=== PATIENT | male | born 1995 | race Caucasian/White ===

== ENCOUNTER 2017-03-03 00:30 | Emergency (ER) | payer OTHER ==
[2017-03-03] MEDS ORDERED: SODIUM CHLORIDE 0.9% 1,000 ML IV STA ×3 (00:53→02:01)
[2017-03-03] MEDS ORDERED: MORPHINE SULFATE 5 MG/ML SYRINGE IV STA (00:53)
[2017-03-03] MEDS ORDERED: ONDANSETRON 4 MG/2 ML VIAL IVP STA (00:53)
[2017-03-03] MEDS ORDERED: SODIUM CHLORIDE 0.9% 500 ML IV STA (00:53)
[2017-03-03] MEDS ORDERED: IPRATROPIUM-ALBUTEROL 3 ML NEB INHALATION STA (00:54)
[2017-03-03] MEDS ORDERED: ACETAMINOPHEN TAB 325 MG TAB PO STA (00:54)
[2017-03-03] MEDS ORDERED: DEXAMETHASONE SOD PHOSPHATE 10 MG/ML 1 ML VIAL IV STA (00:54)
[2017-03-03] MEDS ORDERED: KETOROLAC 30 MG/ML 1 ML VIAL IVP STA (00:54)
--- NOTE | 2017-03-03 00:59 | ED ---
General Adult HPI - General Chief complaint: Shortness of Breath Stated complaint: Vomiting/Fever Time Seen by Provider: 03/03/17 00:41 Source: patient, RN notes reviewed, old records reviewed Mode of arrival: ambulatory Limitations: no limitations - History of Present Illness Initial comments: This is a 21-year-old male to the ER for those regards to fever, fever cough. Patient states is been not feeling well for about a month. Patient has history of asthma. Otherwise takes no medications. Patient did take Tylenol earlier in the day with no significant improvement. Patient's headache cough fever and decreased appetite for yesterday into today. Patient was receiving [employer] visiting his girlfriend who he states also had some similar illness. Patient denies sore throat. No bowel pain. Loose stools but no significant diarrhea. - Related Data Home Medications Medication Instructions Recorded Confirmed OXcarbazepine [Trileptal] 300 mg PO BID 01/18/16 02/10/16 QUEtiapine [SEROquel] 200 mg PO HS 01/18/16 02/10/16 Previous Rx's Medication Instructions Recorded Albuterol Inhaler [Ventolin Hfa 1 - 2 puff INHALATION Q6HR PRN #1 02/10/16 Inhaler] inhaler Clarithromycin [Biaxin] 500 mg PO Q12HR 10 Days tablet 02/10/16 predniSONE 20 mg PO DAILY #5 tab 02/10/16 Naproxen [Naprosyn] 500 mg PO Q12HR PRN #30 tab 03/03/17 Oseltamivir [Tamiflu] 75 mg PO Q12HR #10 cap 03/03/17 Allergies Allergy/AdvReac Type Severity Reaction Status Date / Time atomoxetine HCl Allergy Unknown Verified 03/03/17 00:36 [From Strattera] blueberry Allergy Unknown Verified 03/03/17 00:36 divalproex sodium Allergy Unknown Verified 03/03/17 00:36 [From Depakote] Fish Containing Products Allergy Unknown Verified 03/03/17 00:36 [Fish] methylphenidate HCl Allergy Unknown Verified 03/03/17 00:36 [From Concerta] peas Allergy Unknown Verified 03/03/17 00:36 Review of Systems ROS Statement: Those systems with pertinent positive or pertinent negative responses have been documented in the HPI. ROS Other: All systems not noted in ROS Statement are negative. Past Medical History Past Medical History: Asthma Additional Past Medical History / Comment(s): tourettes History of Any Multi-Drug Resistant Organisms: MRSA Date of last positivie culture/infection: 2015 MDRO Source:: chest Past Surgical History: No Surgical Hx Reported Past Psychological History: ADD/ADHD, Anxiety, Bipolar, Depression Smoking Status: Current every day smoker Past Alcohol Use History: Occasional Past Drug Use History: Marijuana General Exam Limitations: no limitations General appearance: alert, in no apparent distress Head exam: Present: atraumatic, normocephalic, normal inspection Eye exam: Present: normal appearance, PERRL, EOMI. Absent: scleral icterus, conjunctival injection, periorbital swelling ENT exam: Present: normal exam, mucous membranes moist Neck exam: Present: normal inspection. Absent: tenderness, meningismus, lymphadenopathy Respiratory exam: Present: normal lung sounds bilaterally. Absent: respiratory distress, wheezes, rales, rhonchi, stridor Cardiovascular Exam: Present: normal rhythm, tachycardia, normal heart sounds. Absent: systolic murmur, diastolic murmur, rubs, gallop, clicks GI/Abdominal exam: Present: soft, normal bowel sounds. Absent: distended, tenderness, guarding, rebound, rigid Extremities exam: Present: normal inspection, full ROM, normal capillary refill. Absent: tenderness, pedal edema, joint swelling, calf tenderness Back exam: Present: normal inspection Neurological exam: Present: alert, oriented X3, CN II-XII intact Psychiatric exam: Present: normal affect, normal mood Skin exam: Present: warm, dry, intact, normal color. Absent: rash Course Vital Signs 03/03/17 03/03/17 03/03/17 00:31 01:09 01:27 Temperature 103.6 F H Pulse Rate 105 H 106 H 104 H Respiratory 28 H 18 Rate Blood Pressure 128/78 138/76 O2 Sat by Pulse 98 98 Oximetry 03/03/17 01:44 Temperature 101.5 F H Pulse Rate 108 H Respiratory 20 Rate Blood Pressure 141/77 O2 Sat by Pulse 98 Oximetry - Reevaluation(s) Reevaluation #1: 03/03/17 01:53 Patient feels much improved symptomatically therapy Medical Decision Making - Medical Decision Making 21 ER for evaluation of fever, congestion, positive for this, actually negative at this point feeling better will discharge on Tamiflu, encouraged fever control. Patient's in no distress - Lab Data Result diagrams: 03/03/17 00:45 03/03/17 00:45 Lab Results 03/03/17 03/03/17 03/03/17 Range/Units 00:45 00:45 00:45 WBC 8.5 (4.0-11.0) k/uL RBC 5.05 (4.30-5.90) m/uL Hgb 14.8 (13.0-17.5) gm/dL Hct 45.7 (39.0-53.0) % MCV 90.5 (80.0-100.0) fL MCH 29.2 (25.0-35.0) pg MCHC 32.3 (31.0-37.0) g/dL RDW 15.3 (11.5-15.5) % Plt Count 169 (150-450) k/uL Neutrophils % 78 % Lymphocytes % 7 % Monocytes % 10 % Eosinophils % 1 % Basophils % 3 % Neutrophils # 6.6 (1.3-7.7) k/uL Lymphocytes # 0.6 L (1.0-4.8) k/uL Monocytes # 0.8 (0-1.0) k/uL Eosinophils # 0.1 (0-0.7) k/uL Basophils # 0.2 (0-0.2) k/uL PT (9.0-12.0) sec INR (<1.2) APTT (22.0-30.0) sec D-Dimer (<0.60) mg/L FEU Sodium 142 (137-145) mmol/L Potassium 3.6 (3.5-5.1) mmol/L Chloride 101 (98-107) mmol/L Carbon Dioxide 29 (22-30) mmol/L Anion Gap 12 mmol/L BUN 12 (9-20) mg/dL Creatinine 0.80 (0.66-1.25) mg/dL Est GFR (MDRD) Af Amer >60 (>60 ml/min/1.73 sqM) Est GFR (MDRD) Non-Af >60 (>60 ml/min/1.73 sqM) Glucose 101 H (74-99) mg/dL Plasma Lactic Acid Len (0.7-2.0) mmol/L Calcium 9.9 (8.4-10.2) mg/dL Phosphorus 4.0 (2.5-4.5) mg/dL Magnesium 1.8 (1.6-2.3) mg/dL Total Bilirubin 0.3 (0.2-1.3) mg/dL AST 25 (17-59) U/L ALT 40 (21-72) U/L Alkaline Phosphatase 83 (38-126) U/L Total Creatine Kinase 220 H (55-170) U/L CK-MB (CK-2) 0.6 (0.0-2.4) ng/mL CK-MB (CK-2) Rel Index 0.3 Troponin I <0.012 (0.000-0.034) ng/mL Total Protein 7.3 (6.3-8.2) g/dL Albumin 4.8 (3.5-5.0) g/dL Urine Color Urine Appearance (Clear) Urine pH (5.0-8.0) Ur Specific Ovid (1.001-1.035) Urine Protein (Negative) Urine Glucose (UA) (Negative) Urine Ketones (Negative) Urine Blood (Negative) Urine Nitrite (Negative) Urine Bilirubin (Negative) Urine Urobilinogen (<2.0) mg/dL Ur Leukocyte Esterase (Negative) Influenza Type A RNA (Not Detectd) Influenza Type B (PCR) (Not Detectd) 03/03/17 03/03/17 03/03/17 Range/Units 00:45 00:45 01:10 WBC (4.0-11.0) k/uL RBC (4.30-5.90) m/uL Hgb (13.0-17.5) gm/dL Hct (39.0-53.0) % MCV (80.0-100.0) fL MCH (25.0-35.0) pg MCHC (31.0-37.0) g/dL RDW (11.5-15.5) % Plt Count (150-450) k/uL Neutrophils % % Lymphocytes % % Monocytes % % Eosinophils % % Basophils % % Neutrophils # (1.3-7.7) k/uL Lymphocytes # (1.0-4.8) k/uL Monocytes # (0-1.0) k/uL Eosinophils # (0-0.7) k/uL Basophils # (0-0.2) k/uL PT 9.9 (9.0-12.0) sec INR 1.0 (<1.2) APTT 25.9 (22.0-30.0) sec D-Dimer 0.44 (<0.60) mg/L FEU Sodium (137-145) mmol/L Potassium (3.5-5.1) mmol/L Chloride (98-107) mmol/L Carbon Dioxide (22-30) mmol/L Anion Gap mmol/L BUN (9-20) mg/dL Creatinine (0.66-1.25) mg/dL Est GFR (MDRD) Af Amer (>60 ml/min/1.73 sqM) Est GFR (MDRD) Non-Af (>60 ml/min/1.73 sqM) Glucose (74-99) mg/dL Plasma Lactic Acid Len 1.3 (0.7-2.0) mmol/L Calcium (8.4-10.2) mg/dL Phosphorus (2.5-4.5) mg/dL Magnesium (1.6-2.3) mg/dL Total Bilirubin (0.2-1.3) mg/dL AST (17-59) U/L ALT (21-72) U/L Alkaline Phosphatase (38-126) U/L Total Creatine Kinase (55-170) U/L CK-MB (CK-2) (0.0-2.4) ng/mL CK-MB (CK-2) Rel Index Troponin I (0.000-0.034) ng/mL Total Protein (6.3-8.2) g/dL Albumin (3.5-5.0) g/dL Urine Color Urine Appearance (Clear) Urine pH (5.0-8.0) Ur Specific Ovid (1.001-1.035) Urine Protein (Negative) Urine Glucose (UA) (Negative) Urine Ketones (Negative) Urine Blood (Negative) Urine Nitrite (Negative) Urine Bilirubin (Negative) Urine Urobilinogen (<2.0) mg/dL Ur Leukocyte Esterase (Negative) Influenza Type A RNA Detected H (Not Detectd) Influenza Type B (PCR) Not Detected (Not Detectd) 03/03/17 Range/Units 01:34 WBC (4.0-11.0) k/uL RBC (4.30-5.90) m/uL Hgb (13.0-17.5) gm/dL Hct (39.0-53.0) % MCV (80.0-100.0) fL MCH (25.0-35.0) pg MCHC (31.0-37.0) g/dL RDW (11.5-15.5) % Plt Count (150-450) k/uL Neutrophils % % Lymphocytes % % Monocytes % % Eosinophils % % Basophils % % Neutrophils # (1.3-7.7) k/uL Lymphocytes # (1.0-4.8) k/uL Monocytes # (0-1.0) k/uL Eosinophils # (0-0.7) k/uL Basophils # (0-0.2) k/uL PT (9.0-12.0) sec INR (<1.2) APTT (22.0-30.0) sec D-Dimer (<0.60) mg/L FEU Sodium (137-145) mmol/L Potassium (3.5-5.1) mmol/L Chloride (98-107) mmol/L Carbon Dioxide (22-30) mmol/L Anion Gap mmol/L BUN (9-20) mg/dL Creatinine (0.66-1.25) mg/dL Est GFR (MDRD) Af Amer (>60 ml/min/1.73 sqM) Est GFR (MDRD) Non-Af (>60 ml/min/1.73 sqM) Glucose (74-99) mg/dL Plasma Lactic Acid Len (0.7-2.0) mmol/L Calcium (8.4-10.2) mg/dL Phosphorus (2.5-4.5) mg/dL Magnesium (1.6-2.3) mg/dL Total Bilirubin (0.2-1.3) mg/dL AST (17-59) U/L ALT (21-72) U/L Alkaline Phosphatase (38-126) U/L Total Creatine Kinase (55-170) U/L CK-MB (CK-2) (0.0-2.4) ng/mL CK-MB (CK-2) Rel Index Troponin I (0.000-0.034) ng/mL Total Protein (6.3-8.2) g/dL Albumin (3.5-5.0) g/dL Urine Color Yellow Urine Appearance Clear (Clear) Urine pH 8.0 (5.0-8.0) Ur Specific Ovid 1.014 (1.001-1.035) Urine Protein Trace H (Negative) Urine Glucose (UA) Negative (Negative) Urine Ketones Negative (Negative) Urine Blood Negative (Negative) Urine Nitrite Negative (Negative) Urine Bilirubin Negative (Negative) Urine Urobilinogen <2.0 (<2.0) mg/dL Ur Leukocyte Esterase Negative (Negative) Influenza Type A RNA (Not Detectd) Influenza Type B (PCR) (Not Detectd) - Radiology Data Radiology results: report reviewed (Chest x-ray is negative for acute disease), image reviewed Disposition Clinical Impression: Fever, Influenza A Disposition: HOME SELF-CARE Instructions: Influenza (ED) Prescriptions: Naproxen [Naprosyn] 500 mg PO Q12HR PRN #30 tab PRN Reason: Pain Oseltamivir [Tamiflu] 75 mg PO Q12HR #10 cap Referrals: None,Stated [Primary Care Provider] - 1-2 days
[2017-03-03 01:04] LABS: Basophils # (A) 0.2 k/uL (0-0.2); Basophils % (A) 3 %; Eosinophils # (A) 0.1 k/uL (0-0.7); Eosinophils % (A) 1 %; HCT 45.7 % (39.0-53.0); HGB 14.8 gm/dL (13.0-17.5); Lymphocytes # (A) 0.6 k/uL (1.0-4.8); Lymphocytes % (A) 7 %; MCH 29.2 pg (25.0-35.0); MCHC 32.3 g/dL (31.0-37.0); MCV 90.5 fL (80.0-100.0); Mean Platelet Volume 8.8; Monocytes # (A) 0.8 k/uL (0-1.0); Monocytes % (A) 10 %; Neutrophils # (A) 6.6 k/uL (1.3-7.7); Neutrophils % (A) 78 %; Platelet Count 169 k/uL (150-450); RBC 5.05 m/uL (4.30-5.90); RDW 15.3 % (11.5-15.5); WBC 8.5 k/uL (4.0-11.0)
--- NOTE | 2017-03-03 01:06 | XR ---
EXAMINATION TYPE: XR chest 2V DATE OF EXAM: 03/03/2017 COMPARISON: 02/10/2016 HISTORY: Cough TECHNIQUE: Frontal and lateral views of the chest are obtained. FINDINGS: Heart and mediastinum are normal. Lungs are clear. Diaphragm is normal. Bony thorax appear s normal. IMPRESSION: Normal chest. No change.
[2017-03-03 01:19] LABS: ALT 40 U/L (21-72); AST 25 U/L (17-59); Albumin 4.8 g/dL (3.5-5.0); Alkaline Phosphatase 83 U/L (38-126); Anion Gap 12 mmol/L; Blood Urea Nitrogen 12 mg/dL (9-20); Calcium 9.9 mg/dL (8.4-10.2); Carbon Dioxide 29 mmol/L (22-30); Chloride 101 mmol/L (98-107); Glucose 101 mg/dL (74-99); Magnesium 1.8 mg/dL (1.6-2.3); Potassium 3.6 mmol/L (3.5-5.1); Sodium 142 mmol/L (137-145); Total Bilirubin 0.3 mg/dL (0.2-1.3); Total Protein 7.3 g/dL (6.3-8.2)
[2017-03-03 01:20] LABS: Prothrombin Time 9.9 sec (9.0-12.0)
[2017-03-03 01:21] LABS: D-Dimer 0.44 mg/L FEU (<0.60); Partial Thromboplastin Time 25.9 sec (22.0-30.0)
[2017-03-03 01:24] LABS: Creatine Kinase 220 U/L (55-170)
[2017-03-03 01:37] LABS: Creatine Kinase MB 0.6 ng/mL (0.0-2.4); Troponin I <0.012 ng/mL (0.000-0.034)
[2017-03-03 01:45] VITALS: TEMP 101.5
[2017-03-03 01:47] LABS: Appearance,Urine Clear (Clear); Bilirubin,Urine Negative (Negative); Blood,Urine Negative (Negative); Color,Urine Yellow; Glucose,Urine (UA) Negative (Negative); Ketones,Urine Negative (Negative); Leukocyte Esterase,Urine Negative (Negative); Nitrite,Urine Negative (Negative); Protein,Urine Trace (Negative); Specific Gravity,Urine 1.014 (1.001-1.035); Urobilinogen,Urine <2.0 mg/dL (<2.0)
[2017-03-03] MEDS ORDERED: OSELTAMIVIR 75 MG CAP PO STA (01:51)
[2017-03-03 02:27] VITALS: BP 128/67; PULSE 87; RESP 18
[2017-03-03 14:12] LABS: Hepatitis A Antibody IgM Non-Reactive (Non-Reactive); Hepatitis B Core IgM Non-Reactive (Non-Reactive)
== END 2017-03-03 02:36 | disposition home or self-care (01) ==
LOC: EC 00:30
DX: J10.1 Influenza due to other identified influenza virus with other respiratory manifestations (principal); F31.9 Bipolar disorder, unspecified; F17.200 Nicotine dependence, unspecified, uncomplicated; Z86.14 Personal history of Methicillin resistant Staphylococcus aureus infection; Z88.8 Allergy status to other drugs, medicaments and biological substances; Z91.018 Allergy to other foods; Z91.013 Allergy to seafood; Z79.899 Other long term (current) drug therapy
CPT/HCPCS: 99285; 96374; 96375 ×3; 96361 ×2; 36415; 94640; 85379; 80053; 80074; 82550; 82553; 83605; 83735; 84100; 84484; 85025; 85610; 85730; 81003; 87040; 87086; 87502; 71046; J1100; J2405; J1885; J2274